=== PATIENT | male | born 1990 | race African-American/Black ===

== ENCOUNTER 2019-06-30 13:25 | Emergency (ER) | payer BC, MEDICAID ==
[~2019-06-30] VITALS: Ht 175.3 cm; Wt 68.0 kg
[2019-06-30 17:39] VITALS: BP 126/59
[2019-06-30] MEDS ORDERED: KETOROLAC 60MG/2ML VIAL IM ONE (18:00)
== END 2019-06-30 18:40 | disposition home or self-care (01) ==
LOC: ER 13:25
DX: M62.830 Muscle spasm of back (principal)
CPT/HCPCS: 96372; 99283; J1885

== ENCOUNTER 2019-12-08 10:40 | Emergency (ER) | payer SELFPAY ==
[~2019-12-08] VITALS: Ht 175.3 cm; Wt 75.0 kg
[2019-12-08] MEDS ORDERED: IBUPROFEN 600MG TABLET PO ONE (11:00)
[2019-12-08 12:08] VITALS: BP 131/53
== END 2019-12-08 12:17 | disposition home or self-care (01) ==
LOC: ER 10:40
DX: M79.671 Pain in right foot (principal); R03.0 Elevated blood-pressure reading, without diagnosis of hypertension
CPT/HCPCS: 73630; 99283

== ENCOUNTER 2023-10-03 00:39 | Emergency (ER) | payer SELFPAY ==
[~2023-10-03] VITALS: Ht 175.3 cm; Wt 73.0 kg
[2023-10-03 00:51] VITALS: O2SAT 99
[2023-10-03] MEDS ORDERED: SULF1TAB48 PO (05:43)
[2023-10-03] MEDS ORDERED: CEPH500T PO (05:43)
[2023-10-03] MEDS ORDERED: IBUP-2028 PO (05:43)
[2023-10-03 06:18] VITALS: BP 127/75; PULSE 71; RESP 14; TEMP 98.6
== END 2023-10-03 06:20 | disposition home or self-care (01) ==
LOC: ER 00:39
DX: L03.116 Cellulitis of left lower limb (principal)
CPT/HCPCS: 99283